=== PATIENT | female | born 1965 | race Caucasian/White ===

== ENCOUNTER 2019-05-01 09:32 | Outpatient (CLI) | payer OTHER ==
--- NOTE | 2019-05-01 10:32 | MMO ---
Bilateral MAMMO Bilat Diag [facility]. CLINICAL HISTORY: Patient is 54 years old and is seen for diagnostic exam. The patient has no family history of breast cancer. The patient has no personal history of cancer. VIEWS: The views performed were: bilateral craniocaudal with tomosynthesis; bilateral mediolateral oblique with tomosynthesis; and bilateral mediolateral with tomosynthesis. FILMS COMPARED: The present examination has been compared to prior imaging studies performed at [facility] on 01/21/2015 and 05/01/2019, and at [facility] on 01/21/2015. This study has been interpreted with the assistance of computer-aided detection. MAMMOGRAM FINDINGS: The breasts are heterogeneously dense, which could obscure a lesion on mammography. Finding 1: There are several masses with circumscribed margins seen in both breasts. Finding 2: There are benign appearing calcifications seen in the upper-outer region of the left breast. There are no suspicious masses, suspicious calcifications, or new areas of architectural distortion. IMPRESSION: FINDING 1: MASSES IN BOTH BREASTS ARE BENIGN. FINDING 2: CALCIFICATIONS IN THE LEFT BREAST ARE BENIGN. FINDING 3: FINDING IN THE LEFT BREAST IS BENIGN. ULTRASOUND THE PALPABLE FINDING. MULTPLE CYSTS. A ROUTINE FOLLOW-UP MAMMOGRAM IN 1 YEAR IS RECOMMENDED. THE RESULTS OF THIS EXAM WERE SENT TO THE PATIENT. ACR BI-RADS Category 2 - Benign finding MAMMOGRAPHY NOTE: 1. A negative mammogram report should not delay a biopsy if a dominant of clinically suspicious mass is present. 2. Approximately 10% to 15% of breast cancers are not detected by mammography. 3. Adenosis and dense breasts may obscure an underlying neoplasm. Reported by: LESTER MCDERMOTT MD Electonically Signed: [id number]
--- NOTE | 2019-05-01 10:40 | ULT ---
LEFT BREAST ULTRASOUND LIMITED: Date: 05/01/19 HISTORY: Palpable finding left breast at 2 o'clock. COMPARISON: 01/21/15. FINDINGS: Several cysts are noted in the 2 o'clock region of the left breast, the largest of which measures 1.7 x 2.7 x 2.7 cm, smaller than on the prior study. No evidence for solid mass. IMPRESSION: Multiple left breast cysts at 2 o'clock, accounting for the palpable finding. BI-RADS Category 2 - Be nign findings. Annual follow-up screening mammograms are strongly recommended for this patient. POS: OFF
== END 2019-05-01 09:33 | disposition home or self-care (01) ==
LOC: BICMAMMO 09:32
PROVIDERS: ATTEND Nurse Practitioner Adult Health
DX: N60.02 Solitary cyst of left breast (principal); N63.10 Unspecified lump in the right breast, unspecified quadrant; N63.20 Unspecified lump in the left breast, unspecified quadrant; R92.1 Mammographic calcification found on diagnostic imaging of breast
CPT/HCPCS: 77066; G0279